=== PATIENT | female | born 1990 | race Caucasian/White ===

== ENCOUNTER 2017-04-13 04:44 | Emergency (ER) | payer OTHER ==
[2017-04-13] MEDS ORDERED: DIPHENHYDRAMINE 50 MG/ML VIAL ONE (05:14)
[2017-04-13] MEDS ORDERED: predniSONE 10 MG TABLET PO ONE (05:15)
[2017-04-13] MEDS ORDERED: NORMAL SALINE 1,000 ML IV ONE (05:15)
[2017-04-13] MEDS ORDERED: HYDROCORTISONE 1% CREAM 28 APP/28 GM TUBE TOPICAL ONE (05:50)
--- NOTE | 2017-04-13 05:51 | ER NURSING DOCUMENTATION ---
Nurse's Notes [facility] Name:Jose Luis Nino Age:26 yrs Sex:Female :1990 Arrival Date:04/13/2017 Time:04:44 Bed4 Private MD: Diagnosis:Acute Allergic Reaction Presentation: 04/13 04:54 Presenting complaint: Patient states: I'm having a reaction to pink eye medication. I 2 stopped it on but I have an awful rash and feel short of breath. Transition of care: Home. Onset: The symptoms/episode began/occurred gradually. Anaphylaxis evaluation, no signs or symptoms of anaphylaxis were noted. Notified ED Physician of Adrien Anguiano notified. Care prior to arrival: [facility]. 04:54 Method Of Arrival: Walk In [facility] 04:54 Acuity: REI 3 mk2 Triage Assessment: 04:57 General: Appears uncomfortable, Behavior is flat. Pain: Denies pain. EENT: Eyes are mk2 tearing on outer aspect of conjuctiva of right eye, inner aspect of conjuctiva of right eye, outer aspect of conjuctiva of left eye and inner aspect of conjunctiva of left eye and reddened. Cardiovascular: Heart tones S1 S2. Respiratory: Airway is patent Breath sounds are clear bilaterally. Derm: Rash noted that is red, raised, on back, chest, abdomen, right arm and left arm. 04:58 EENT: Throat no intraoral swelling noted. mk2 Historical: - Allergies: Amoxicillin; Bactrim; - Home Meds: 1. None - PMHx: None; - PSHx: None; - Tetanus: < 10 years. - Ebola Screening: : Patient negative for fever greater than or equal to 101.5 degrees Fahrenheit, and additional compatible Ebola Virus Disease symptoms. Patient denies exposure to infectious person. Patient denies travel to an Ebola-affected area in the 21 days before illness onset. No symptoms or risks identified at this time. . - Immunization history: Flu Vaccine < 1 year. - Social history: Smoking status: Patient uses tobacco products, current every day smoker. Patient uses alcohol Patient/guardian denies using street drugs. Screenin:59 Infectious Disease Risk None. Abuse screen: Denies threats or abuse. Nutritional mk2 screening: No deficits noted. Assessment: 04:59 See Triage Assessment done by same RN. Respiratory: Respiratory effort is even, mk2 unlabored. Vital Signs: 04:58 BP 107 / 66; Pulse 104; Resp 22; Temp 99.5; Pulse Ox 97% on R/A; Weight 64.41 kg; mk2 Height 5 ft. 4 in. (162.56 cm); Pain 0/10; 05:30 BP 121 / 62 (auto/); mk2 05:35 Pulse Ox 97% ; mk2 05:35 Resp 14; mk2 04:58 Body Mass Index 24.37 (64.41 kg, 162.56 cm) 2 ED Course: 04:53 Patient arrived in ED. ma1 04:54 Mellissa Zaragoza, RN is Primary Nurse. mk2 04:56 Triage completed. mk2 04:59 Alexander Jurado MD is Attending Physician. 04:59 Arm band placed on Bed in low position Call Light in Reach Gowned HOB Elevated Side mk2 rails up x1. 04:59 Inserted peripheral IV: 20 gauge in left antecubital area. mk2 05:02 Pulse ox on. mk2 05:49 Valuables Remains with patient. mk2 Administered Medications: 05:02 Drug: NS 0.9% 1000 ml; Route: IV; Rate: bolus; Site: left antecubital; mk2 05:49 Follow up: IV Status: Completed infusion; IV Intake: 1000ml 2 05:22 Drug: Benadryl 50 mg; Route: IVP; Site: left antecubital; mk2 05:36 Follow up: Response: No adverse reaction mk2 05:22 Drug: predniSONE 40 mg; Route: PO; mk2 05:36 Follow up: Response: No adverse reaction mk2 05:40 Drug: hydrocortizone cream1% 1 application; Route: Topical; Site: affected area; mk2 05:40 Follow up: Response: Pharmacy closed - take home med pack mk2 Intake: 05:49 IV: 1000ml; Total: 1000ml. 2 Outcome: 05:07 Discharge ordered by . anel 05:49 Discharged to home ambulatory. mk2 05:49 Condition: improved 05:49 Discharge instructions given to patient, Instructed on discharge instructions, follow up and referral plans. medication usage, Prescriptions given X 2. 05:50 Patient left the ED. 2 04/14 09:37 Discharge F/U Call: Spoke with: patient. Are you having any pain? no. Have you filled lc your prescriptions? yes. Did your discharge instructions answer all of your questions? yes Overall Care on a scale of 1-10 with 10 being the best care, you rate our care as: Other comments: FEELING BETTER Signatures: Theresa Rodriguez, RN RN lc Alexander Jurado MD MD jm Kruger, Meg, RN RN 2 Rekha Dwyer riMiguel
--- NOTE | 2017-04-13 05:51 | ER PHYSICIAN DOCUMENTATION ---
Physician Documentation [facility] Name:Jose Luis Nino Age:26 yrs Sex:Female :1990 Arrival Date:04/13/2017 Time:04:44 Bed4 Private MD: Alexander Lynch Disposition: 04/13/17 05:07 Discharged to Home/Self Care. Impression: Acute Allergic Reaction. - Condition is Good. - Discharge Instructions: ALLERGIC REACTION, Other (General). - Prescriptions for Prednisone 20 mg Oral - take 2 tablet by ORAL route once daily for 4 days; 8 tablet. Tobramycin Sulfate 0.3 % Ophthalmic Drops - instill 2 drop by OPHTHALMIC route every 4 hours; 5 milliliter. - Medical Reconciliation form form. - Follow up: Private Physician; When: As needed; Reason: Continuance of care. - Problem is new. - Symptoms have improved. HPI: 04/13 05:00 This 26 yrs old Female presents to ER via Walk In with complaints of Allergic jm Reaction. 05:00 The patient presents with rash, that is diffuse. Onset: The symptom(s)/episode jm began/occurred today. Possible causes: antibiotics, Bactrim. Historical: - Allergies: Amoxicillin; Bactrim; - Home Meds: 1. None - PMHx: None; - PSHx: None; - Tetanus: < 10 years. - Ebola Screening: : Patient negative for fever greater than or equal to 101.5 degrees Fahrenheit, and additional compatible Ebola Virus Disease symptoms. Patient denies exposure to infectious person. Patient denies travel to an Ebola-affected area in the 21 days before illness onset. No symptoms or risks identified at this time. . - Immunization history: Flu Vaccine < 1 year. - Social history: Smoking status: Patient uses tobacco products, current every day smoker. Patient uses alcohol Patient/guardian denies using street drugs. ROS: 05:00 ENT: Negative for difficulty swallowing, difficulty handling secretions. 05:00 Cardiovascular: Negative for chest pain. 05:00 Respiratory: Negative for shortness of breath. 05:00 Skin: Positive for rash. Exam: 05:00 Constitutional: The patient appears alert, awake. jm 05:00 ENT: Posterior pharynx: is normal, Voice: is normal. 05:00 Respiratory: the patient does not display signs of respiratory distress, Respirations: normal, Breath sounds: are normal. 05:00 Skin: cellulitis, is not appreciated, drug rash, urticaria. Vital Signs: 04:58 BP 107 / 66; Pulse 104; Resp 22; Temp 99.5; Pulse Ox 97% on R/A; Weight 64.41 kg; mk2 Height 5 ft. 4 in. (162.56 cm); Pain 0/10; 05:30 BP 121 / 62 (auto/); mk2 05:35 Pulse Ox 97% ; mk2 05:35 Resp 14; mk2 04:58 Body Mass Index 24.37 (64.41 kg, 162.56 cm) mk2 MDM: 04:59 Patient medically screened. 19:11 Differential diagnosis: urticaria. Data reviewed: vital signs, nurses notes, old medical records, and as a result, I will discharge patient. Counseling: I had a detailed discussion with the patient and/or guardian regarding: the historical points, exam findings, and any diagnostic results supporting the discharge/admit diagnosis, the need for outpatient follow up, with the patient's primary care provider. Response to treatment: the patient's symptoms have mildly improved after treatment. ED course: Pt w obvious allergic rash from PO bactrim that she is taking for "pink eye". Pt switched to tobra othpho and pred burst. . 04/13 05:06 Order name: Iv Saline Lock; Complete Time: 05:22 04/13 05:06 Order name: Pulse Ox Continuous; Complete Time: 05:22 Dispensed Medications: 05:02 Drug: NS 0.9% 1000 ml; Route: IV; Rate: bolus; Site: left antecubital; mk2 05:49 Follow up: IV Status: Completed infusion; IV Intake: 1000ml 2 05:22 Drug: Benadryl 50 mg; Route: IVP; Site: left antecubital; mk2 05:36 Follow up: Response: No adverse reaction 2 05:22 Drug: predniSONE 40 mg; Route: PO; mk2 05:36 Follow up: Response: No adverse reaction mk2 05:40 Drug: hydrocortizone cream1% 1 application; Route: Topical; Site: affected area; mk2 05:40 Follow up: Response: Pharmacy closed - take home med pack 2 Signatures: Jurado, Alexander, MD MD jm Nik, Mellissa, RN RN mk2
== END 2017-04-13 05:51 | disposition home or self-care (01) ==
LOC: ER 04:44
DX: L27.0 Generalized skin eruption due to drugs and medicaments taken internally (principal); T36.8X5A Adverse effect of other systemic antibiotics, initial encounter
CPT/HCPCS: 96361; 96374; 99284; J1200; J7030; J7512